=== PATIENT | female | born 2000 | race Caucasian/White ===

== ENCOUNTER 2019-05-12 14:12 | Outpatient (CLI) | payer BC ==
--- NOTE | 2019-05-12 14:29 | RAD ---
EXAM: Chest 2 views: HISTORY: Cough COMPARISON: None. FINDINGS: There is a normal-sized cardiomediastinal silhouette. There is no evidence of consolidation, mass, or pleural effusion. The bones are unremarkable. IMPRESSION: No evidence of acute cardiopulmonary disease
== END 2019-05-12 14:13 | disposition home or self-care (01) ==
LOC: BICRAD 14:12
DX: R04.2 Hemoptysis (principal)
CPT/HCPCS: 71046